=== PATIENT | female | born 1955 | race Caucasian/White ===

== ENCOUNTER 2021-05-10 00:32 | Day surgery (SDC) | payer MEDICARE, SELFPAY ==
[2021-04-27 17:15] VITALS: BMI 25.4
--- NOTE | 2021-05-09 09:05 | WPDANESEPPF ---
Anes - Initial Pre Proc Eval Procedure: Operation Date: 05/10/21 07:30 Proposed Procedures p Screening Colonoscopy - Lazaro Wagoner MD Date/Time: 05/09/21 09:05 Surgeon: Lazaro Wagoner MD Pre Op Diagnosis: hx of polyps Patient Data Age: 65 Gender: F Height: 1.69 m Weight: 72.5 kg Allergies Allergy/AdvReac Type Severity Reaction Status Date / Time No Known Allergies Allergy Verified 05/10/21 06:22 Home Medications Medication Instructions Recorded Confirmed Type anastrozole 1 mg PO DAILY 04/27/21 05/10/21 History calcium carbonate [Calcium 600] 600 mg PO DAILY 04/27/21 05/10/21 History cholecalciferol (vitamin D3) 25 mcg PO DAILY 04/27/21 05/10/21 History esomeprazole magnesium 20 mg PO DAILY PRN 04/27/21 05/10/21 History nmbrstnfbkxl-quxi-pptja acid 1 tablet PO DAILY 04/27/21 05/10/21 History [Centrum Women] omega 0-fav-qpr-fish oil [Fish Oil] 1 cap PO DAILY 04/27/21 05/10/21 History simvastatin 10 mg PO DAILY 04/27/21 05/10/21 History vitamin B complex 1 cap PO DAILY 04/27/21 05/10/21 History Patient hx anesthesia problems: none Family hx anesthesia problems: none [facility] Past Medical History Medical History (Updated 05/09/21 @ 09:06 by Roman Byrnes DO) GERD (gastroesophageal reflux disease) History of breast cancer Hyperlipidemia Surgical History Surgical History (Updated 05/09/21 @ 09:06 by Roman Byrnes DO) History of lumpectomy of right breast Social History Social History Smoking packs per day: 1 Smoking cigarettes per day: 20.0 Years smoked: 20 Smoking pack-years: 20.00 Smoking status: Former smoker Smoking end date: 10/14/89 Alcohol intake: current Drinks per week: 7 Living arrangements: with family Spiritual care concerns: No Anes - Eval Final PreProcedure Day of Procedure 05/09/21 09:05 Patient weight: overweight Heart: regular rate and rhythm Lungs: clear to auscultation and normal air movement Airway: Mallampati scale class II Neurological: alert and oriented Last oral intake: >/= 8 hours ASA classification: II Emergent: no Anesthetic plan: proceed Anesthesia type and monitoring: general GIVS and standard monitoring Informed Consent: The patient's anesthetic plan and its attendant risks and benefits were discussed with the patient/family/POA. Questions were solicited and answers provided to the satisfaction of the patient/family/POA.
[2021-05-10 06:25] VITALS: BP 115/89; PULSE 88; RESP 16; TEMP 36.3; O2SAT 99; BMI 24.9
[2021-05-10] MEDS: LACTATED RINGERS 1,000 ML 150 ML IV CONT (06:40)
--- NOTE | 2021-05-10 07:12 | PM.HPGS ---
History of Present Illness History of Present Illness Consent: Risks, benefits, and alternatives have been discussed and questions answered. Patient agrees to proceed with procedure. Chief complaint: hx of polyps Narrative: Mya Shi is a 65 year old female referred for colon cancer screening. Her last colonoscopy was 8 years ago Review of Systems Review of Systems: All systems reviewed & are unremarkable except as noted in HPI and below PMFSH Past Medical History Medical History GERD (gastroesophageal reflux disease) History of breast cancer Hyperlipidemia Surgical History Surgical History History of lumpectomy of right breast Social History Social History Smoking packs per day: 1 Smoking cigarettes per day: 20.0 Years smoked: 20 Smoking pack-years: 20.00 Smoking status: Former smoker Smoking end date: 10/14/89 Alcohol intake: current Drinks per week: 7 Living arrangements: with family Spiritual care concerns: No Meds Home Medications and Allergies Home Medications Medication Instructions Recorded Confirmed Type anastrozole 1 mg PO DAILY 04/27/21 05/10/21 History calcium carbonate [Calcium 600] 600 mg PO DAILY 04/27/21 05/10/21 History cholecalciferol (vitamin D3) 25 mcg PO DAILY 04/27/21 05/10/21 History esomeprazole magnesium 20 mg PO DAILY PRN 04/27/21 05/10/21 History enmmdozycfxb-qwjd-skgli acid 1 tablet PO DAILY 04/27/21 05/10/21 History [Centrum Women] omega 8-aea-yic-fish oil [Fish Oil] 1 cap PO DAILY 04/27/21 05/10/21 History simvastatin 10 mg PO DAILY 04/27/21 05/10/21 History vitamin B complex 1 cap PO DAILY 04/27/21 05/10/21 History Allergies Allergy/AdvReac Type Severity Reaction Status Date / Time No Known Allergies Allergy Verified 05/10/21 06:22 Exam Resp: Auscultation: clear to auscultation bilaterally Cardio: Rate: regular rate Rhythm: regular rhythm GI: GI Palp: Yes Soft to palpation and No Tenderness to palpation present (GI) Assessment and Plan Assessment and plan (1) Colon cancer screening: Code(s): Z12.11 - Encounter for screening for malignant neoplasm of colon Status: Acute Assessment and Plan: Colonoscopy with possible biopsy or polypectomy or cautery or injection of substances.
[2021-05-10 08:00] VITALS: BP 110/67; PULSE 76; RESP 14; O2SAT 99
[2021-05-10 08:10] VITALS: BP 127/84; PULSE 77; RESP 14; O2SAT 99
[2021-05-10 08:20] VITALS: BP 131/85; PULSE 77; RESP 23; O2SAT 97
== END 2021-05-10 08:36 | disposition home or self-care (01) ==
PROVIDERS: Visit Provider Internal Medicine Gastroenterology
PROC: 0DJD8ZZ Inspection of Lower Intestinal Tract, Via Natural or Artificial Opening Endoscopic (ICD-10-PCS; CPT 45378; principal; 2021-05-10 07:30)
DX: Z12.11 Encounter for screening for malignant neoplasm of colon (principal); K57.30 Diverticulosis of large intestine without perforation or abscess without bleeding; D12.4 Benign neoplasm of descending colon; D12.5 Benign neoplasm of sigmoid colon; E78.5 Hyperlipidemia, unspecified; K21.9 Gastro-esophageal reflux disease without esophagitis; Z85.3 Personal history of malignant neoplasm of breast; Z79.811 Long term (current) use of aromatase inhibitors; Z87.891 Personal history of nicotine dependence
CPT/HCPCS: 45385; 45381; 88305; J2001; J2704; J7120

== ENCOUNTER 2024-08-26 08:07 | Day surgery (SDC) | payer MEDICARE, SELFPAY ==
[2024-07-17 07:30] VITALS: BMI 25.8
[2024-08-07 11:19] VITALS: BMI 24.8
--- NOTE | 2024-08-26 06:43 | P.PNAN_ITS ---
Anes - Initial Pre Proc Eval Procedure: Operation Date: 08/26/24 10:00 Proposed Procedures p Diagnostic Colonoscopy - Travis Parish MD Date/Time: 08/26/24 06:43 Surgeon: Travis Parish MD Pre Op Diagnosis: Z86.0100 Personal hx of colonic polyps Patient Data Age: 68 Gender: F Height: 1.69 m Weight: 71 kg Allergies Allergy/AdvReac Type Severity Reaction Status Date / Time No Known Allergies Allergy Verified 08/26/24 08:35 Home Medications Medication Instructions Recorded Confirmed Type anastrozole 1 mg tablet 1 mg PO DAILY 04/27/21 08/26/24 History calcium carbonate (Calcium 600) 600 mg PO DAILY 04/27/21 08/26/24 History cholecalciferol (vitamin D3) 25 25 mcg PO DAILY 04/27/21 08/26/24 History mcg (1,000 unit) capsule esomeprazole magnesium 20 mg 20 mg PO DAILY PRN acid relux 04/27/21 08/26/24 History capsule,delayed release simvastatin 10 mg tablet 10 mg PO DAILY 04/27/21 08/26/24 History vitamin B complex 1 cap PO DAILY 04/27/21 08/26/24 History Patient hx anesthesia problems: none Family hx anesthesia problems: none Results Review: All pre-operative results and documents have been reviewed as part of the pre- operative evaluation. [facility] Past Medical History Medical History GERD (gastroesophageal reflux disease) History of breast cancer Hyperlipidemia Surgical History Surgical History History of lumpectomy of right breast Social History Social History (Updated 08/26/24 @ 08:47 by Roman Byrnes DO) Smoking packs per day: 1 Smoking cigarettes per day: 20.0 Years smoked: 20 Smoking pack-years: 20.00 Smoking status: Former smoker Tobacco type: cigarettes Smoking end date: 10/14/89 Alcohol intake: current Drinks per week: 7 Alcohol use details: 2 drinks/day Substance use: never Substance use type: does not use Living arrangements: with family Spiritual care concerns: No Anes - Eval Final PreProcedure Day of Procedure 08/26/24 06:43 Patient weight: overweight Heart: regular rate and rhythm Lungs: clear to auscultation Airway: Mallampati scale class II Neurological: alert and oriented Last oral intake: >/= 8 hours ASA classification: III Emergent: no Anesthetic plan: proceed Anesthesia type and monitoring: general GIVS and standard monitoring Results Review: All pre-operative results and documents have been reviewed as part of the pre- operative evaluation. Informed Consent: The patient's anesthetic plan and its attendant risks and benefits were discussed with the patient/family/POA. Questions were solicited and answers provided to the satisfaction of the patient/family/POA.
[2024-08-26 08:40] VITALS: BP 123/77; PULSE 76; RESP 18; TEMP 36.3; O2SAT 98; BMI 25.1
--- NOTE | 2024-08-26 08:46 | PM.HPGS ---
History of Present Illness History of Present Illness Consent: Risks, benefits, and alternatives have been discussed and questions answered. Patient agrees to proceed with procedure. Chief complaint: Z86.0100 Personal hx of colonic polyps Narrative: Mya Shi is a 68 year old female presents for screening colonoscopy. Patient has current weight appetite and bowel sounds are normal. Patient denies abdominal pain. Is no bleeding. Family history noncontributory. Colon polyps have been found on previous exams. Most recently 3 years ago. Review of Systems Review of Systems: All systems reviewed & are unremarkable except as noted in HPI and below PMFSH Past Medical History Medical History GERD (gastroesophageal reflux disease) History of breast cancer Hyperlipidemia Surgical History Surgical History History of lumpectomy of right breast Social History Social History Smoking packs per day: 1 Smoking cigarettes per day: 20.0 Years smoked: 20 Smoking pack-years: 20.00 Smoking status: Former smoker Tobacco type: cigarettes Smoking end date: 10/14/89 Alcohol intake: current Drinks per week: 7 Alcohol use details: 2 drinks/day Substance use: never Substance use type: does not use Living arrangements: with family Spiritual care concerns: No Meds Home Medications and Allergies Home Medications Medication Instructions Recorded Confirmed Type anastrozole 1 mg tablet 1 mg PO DAILY 04/27/21 08/26/24 History calcium carbonate (Calcium 600) 600 mg PO DAILY 04/27/21 08/26/24 History cholecalciferol (vitamin D3) 25 25 mcg PO DAILY 04/27/21 08/26/24 History mcg (1,000 unit) capsule esomeprazole magnesium 20 mg 20 mg PO DAILY PRN acid relux 04/27/21 08/26/24 History capsule,delayed release simvastatin 10 mg tablet 10 mg PO DAILY 04/27/21 08/26/24 History vitamin B complex 1 cap PO DAILY 04/27/21 08/26/24 History Allergies Allergy/AdvReac Type Severity Reaction Status Date / Time No Known Allergies Allergy Verified 08/26/24 08:35 Vital Signs Vital Signs - 24 hr 08/26/24 08:40 Temperature 97.3 F L Pulse Rate 76 Respiratory Rate 18 Blood Pressure 123/77 Pulse Oximetry 98 Oxygen Delivery Room Air Exam Narrative: Physical exam reveals patient signs stable. Exam is unremarkable. Patient is anicteric. Lungs are clear to auscultation and percussion. His without murmur or extra sounds. Abdomen bowel sounds are present soft nontender with no hepatosplenomegaly. Digital external rectal exam normal. Assessment and Plan Assessment and plan (1) Colon cancer screening: Code(s): Z12.11 - Encounter for screening for malignant neoplasm of colon Status: Acute (2) History of colon polyps: Code(s): Z86.0100 - Personal history of colon polyps, unspecified Status: Acute Assessment and Plan: Patient has a previous history of adenomatous colon polyp. Plan for surveillance colonoscopy now and at intervals in the future.
[2024-08-26] MEDS: AMPICILLIN 2 GM/NS 100 ML 2 GM/100 ML BAG IVPB (08:56)
[2024-08-26] MEDS: LACTATED RINGERS 1,000 ML 150 ML IV CONT (08:56)
[2024-08-26 09:37] VITALS: BP 120/86; PULSE 89; RESP 14; O2SAT 97
[2024-08-26 09:47] VITALS: BP 120/77; PULSE 84; RESP 16; O2SAT 100
[2024-08-26 09:57] VITALS: BP 116/81; PULSE 84; RESP 18; O2SAT 99
--- NOTE | 2024-08-26 12:32 | WPDANESPN ---
Anes - Prog Note Post-Op Date/Time: 08/26/24 12:32 Cardiovascular status: normal Respiratory status: normal Airway patency: baseline Mental status: baseline Post-Op hydration status: normal Vital Signs: Last Vital Signs Temp 36.3 C L 08/26/24 08:40 Pulse 84 08/26/24 09:57 Resp 18 08/26/24 09:57 BP 116/81 08/26/24 09:57 Pulse Ox 99 08/26/24 09:57 O2 Del Method Room Air 08/26/24 09:57 Pain Score (VAS): 0 I/O: Intake & Output 08/25/24 08/26/24 08/26/24 23:59 07:59 15:59 Intake Total 100 Balance 100 Post-procedural complaints: none Patient Feedback: Patient satisfied with anesthetic care. Other Findings: Patient vital signs back to baseline. Patient denies nausea and vomiting. Patient's pain under control. Patient OK for discharge.
== END 2024-08-26 10:10 | disposition home or self-care (01) ==
PROVIDERS: PCP Family Medicine; Visit Provider Internal Medicine Gastroenterology
PROC: 0DJD8ZZ Inspection of Lower Intestinal Tract, Via Natural or Artificial Opening Endoscopic (ICD-10-PCS; CPT 45378; principal; 2024-08-26 10:00)
DX: Z86.0100 Personal history of colon polyps, unspecified (principal); K57.30 Diverticulosis of large intestine without perforation or abscess without bleeding; K64.8 Other hemorrhoids
CPT/HCPCS: 45378

== ENCOUNTER → 2025-05-04 16:03 | Outpatient (REF) | payer MEDICARE, SELFPAY ==
--- NOTE | 2025-05-04 16:03 | S_PTH ---
PATIENT: Mya Shi LOC: ANAB #:[id number] AGE/SX: 70/F ROOM: RE05/04/[address]: Jayla Self MD : 1955 BED: DIS: SPEC #: [id number] RECD: 05/05/25 06:58 STATUS: CHRIS REQ #: [id number] ENZO: 05/04/25 16:[address]: Jyala Self DEPT: [facility] Surgical RECD BY: Blank Rivera ENTERED: 05/05/25 06:58 SP TYPE: Surgical OTHR DR: Vinicio GrewalMD Tissues: A - Skin Procedures: Hematoxylin and Eosin Stain Gross and Microscopic Level 4
--- OUTSIDE RECORDS SUMMARY | 2025-05-04 16:05 | XMS_ITS ---
Author Organization [facility] Address [address] [place] [address] Care Team Providers Care Box Nailer Name Role Phone Vinicio Grewal MD Primary Care Provider [phone] Jennie Betancourt CONTACT LENS POLISHER Unavailable [phone] Active Problems Problem Noted Date Diagnosed Date Hip osteoarthritis 05/04/2024 Osteopenia 01/05/2024 Gastroesophageal reflux disease without esophagi tis 05/21/2023 Prediabetes 05/21/2023 Primary osteoarthritis of left hip 05/21/2023 History of breast cancer 12/03/2022 Primary osteoarthritis of left knee 11/03/2021 Overview (11/03/2021): Added automatically from request for surgery [id number] Diverticulosis 06/28/2021 Malignant neoplasm of upper- outer quadrant of right breast in female, estrogen receptor positive 11/18/2020 Malignant neoplasm of lower- outer quadrant of right breast of female, estrogen receptor positive 11/16/2019 Cancer Staging:Clinical: cT1b - Unsigned Pathologic:Stage IA(pT1b, pN0(sn), cM0, G2, ER+, NH+, HER2-) - Unsigned Mixed hyperlipidemia 11/16/2019 Current Treatment and Therapy Plans No current plan information found. Past Treatment and Therapy Plans No past plan information found. Radiation Treatments * Course C1 R BREAST 2020 01/05/2020 - 01/25/2020 Treatment Period Energy Fraction Dose Fractions Total Dose Plans Planned R BREAST 01/05/2020 - 01/25/2020 267 15 / 4,005 Reference Points Delivered dpv luke 01/05/2020 - 01/25/2020,005 Lifetime Dose Tracking * Chemical Lifetime Dose Automatic Entry Manual Entr y Fluoro Time 0.25 minutes 0.25 minutes 0 minutes Air kerma at the reference point (Ka,r) 2.67 mGy 2 .67 mGy 0 mGy Resolved Problems Problem Noted Date Diagnosed Date Resolved Date Well woman exam 12/17/2023 01/16/2025 Assessment & Plan (01/16/2025 11:18 PM CDT): - Pap: Age > 65 with previous adequate screening, no further screening indicated - HPV vaccine: Not received, no longer eligible - STI screening: Declines - Contraception: Post-menopausal - Hormone Therapy: Declines vaginal estrogen - Mammogram: Last BI-RADS 2 on 12/2023, next due and scheduled for today - Colonoscopy: Last 2023, next due 2028 - DEXA: Last with osteopenia on 11/2023. FRAX with 10-year probability of major osteoporotic fracture 11%/hip fracture 1.7%. Based off this, recommend repeat in 5-10 years., and Reviewed consumption of 1200mg Calcium and 800 international units of Vitamin D - Reviewed AHA recommendation of 150 minutes of moderate-intensity activity per week - Counseled on consuming varied diet rich in whole grains and fruits/vegetables - Covid-19 and influenza vaccination recommendations reviewed, received fall 2023 vaccines - Remainder of medical problems to be managed by PCP Assessment & Plan (01/05/2024 1:38 PM CDT): -Pap: NILM, HR HPV negative 09/2019. Remote history of abnormal Pap greater than 25 years ago. No further screening indicated at this time. -HPV vaccine: Not received, no longer eligible -STI screening: Declines -Contraception: Declines -Mammogram: Completed today -Colonoscopy: Reports she is scheduled for this the next few months -Dexa: 11/2023 with evidence of osteopenia. Counseled on calcium/vitamin-D intake and weight-bearing exercises. Repeat scan no sooner than 2 years. -Reviewed AHA recommendation of 150 minutes of moderate-intensity activity per week -Counseled on consuming varied diet rich in whole grains and fruits/vegetables -Covid-19 and influenza vaccination recommendations reviewed, received fall 2022 vaccines Encounter for preventive health examination 06/14/2017 12/18/2024 Encounter for preventive health examination 06/14/2017 12/18/2024
--- OUTSIDE RECORDS SUMMARY | 2025-05-04 16:05 | XMS_ITS | Encounter Summary ---
Author Organization [facility] Address [facility] [place] [address] Care Team Providers Care Music Education Director Name Role Phone Pranay Uribe DO Primary Care Provider [phone] Mary Norton MD Primary Care Provider [phone] Roman Grewal MD Primary Care Provider [phone] Vinicio Grewal MD Primary Care Provider [phone] Encounter Details Date Type Department Care Team (Late st Contact Info) Description 06/30/2021 MyChart Message Enc [facility] Family Medicine - [place] [address] [place] [phone] Pranay Uribe DO [address] [place] [address] RE: Test Results Social History Tobacco Use Types Packs/Day Years Used Date Smoking Tobacco: Former Smokeless Tobacco: Never Comments:quit 30 years ago Alcohol Use Standard Drinks/Week Comments Yes 0 (1 standard drink = 0.6 oz pur e alcohol) PHQ-2 Answer Date Recorded PHQ-2 Score - If the patient scores above 3, please move on to questions 3-9 0 03/17/2021 Comments No Sex and Gender Information Value Date Recorded Sex Assigned at Not on file 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 Gender Identity Not on file Sexual Orientation Not on file documented as of this encounter Plan of Treatment Not on file documented as of this encounter Visit Diagnoses Not on filedocumented in this encounter Additional Health Concerns Assessment Noted Time PHQ-9 Depression Total Score: 0 03/17/20 21 8:23 AM CDT documented as of this encounter Care Teams Music Education Director Relationship Specialty Start Date End Date Pranay Uribe DO PCP - General FAMILY PRACTICE 11/16/19 10/02/22 Mary Norton MD [address] [place] [address] PCP - General FAMILY PRACTICE 11/08/22 12/02/22 Roman Grewal MD [address] [place] [address] PCP - General 12/03/22 12/03/22 Vinicio Grewal MD [address] [facility] [address] [place] [address] PCP - General FAMILY PRACTICE 12/04/22 documented as of this encounter
--- OUTSIDE RECORDS SUMMARY | 2025-05-04 16:05 | XMS_ITS | Encounter Summary ---
Author Organization [place] Address [facility] [place] [address] Care Team Providers Care Software Development Specialist Name Role Phone Pranay Uribe DO Primary Care Provider [phone] Mary Norton MD Primary Care Provider [phone] Roman Grewal MD Primary Care Provider [phone] Vinicio Grewal MD Primary Care Provider [phone] Encounter Details Date Type Department Care Team (Late st Contact Info) Description 05/25/2021 MyChart Message Enc [facility] Family Medicine - [place] [address], [address] [place] [phone] Pranay Uribe DO [address] [place] [address] RE: Test Results Social History Tobacco Use [...] on file 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 Gender Identity Not on file Sexual Orientation Not on file documented as of this encounter Plan of Treatment Not on file documented as of this encounter Visit Diagnoses Not on filedocumented in this encounter Additional Health Concerns Assessment Noted Time PHQ-9 Depression Total Score: 0 03/17/20 21 8:23 AM CDT documented as of this encounter Care Teams Software Development Specialist Relationship Specialty Start Date End Date Pranay Uribe DO PCP - General FAMILY PRACTICE 11/16/19 10/02/22 Mary Norton MD [address] [place] [address] PCP - General FAMILY PRACTICE 11/08/22 12/02/22 Roman Grewal MD [address] [place] [address] PCP - General 12/03/22 12/03/22 Vinicio Grewal MD [address] [facility] [address] [place] [address] PCP - General FAMILY PRACTICE 12/04/22 documented as of this encounter
--- OUTSIDE RECORDS SUMMARY | 2025-05-04 16:05 | XMS_ITS | Encounter Summary ---
Author Organization [facility] Address [address] [place] [address] Care Team Providers Care Division Plant Engineer Name Role Phone Vinicio Grewal MD Primary Care Provider [phone] Encounter Details Date Type Department Care Team (Late st Contact Info) Description 08/27/2023 MyCImproveit! 360t Message Enc [facility] Family Medicine - [place] [address] [place], [place] [phone] Vinicio Grewal MD [address] [facility] [address] [place], [place] [id number] Pre diabetic Social History Tobacco Use Types Packs/Day Years Used Date Smoking Tobacco: Former Cigarettes Q uit: 06/22/1990 Smokeless Tobacco: Never Comments:quit 30 years ago Alcohol Use Standard Drinks/Week Comments Yes 16.7 (1 standard drink = 0.6 oz pure alcohol) PHQ-2 Answer Date Recorded Patient Health Questionnaire-2 Score 0 12/04/2022 Comments No Sex and Gender Information Value Date Recorded Sex Assigned at Not on file Legal Sex Female 11:54 AM PRIVATE PILOT Gender Identity Not on file Sexual Orientation Not on file documented as of this encounter Plan of Treatment Not on file documented as of this encounter Visit Diagnoses Not on filedocumented in this encounter Additional Health Concerns Assessment Noted Time PHQ-9 Depression Total Score: 1 03/22/20 22 10:14 AM CDT documented as of this encounter Care Teams Division Plant Engineer Relationship Specialty Start Date End Date Vinicio Grewal MD [address] [facility] [address] [place] [address] PCP - General FAMILY PRACTICE 12/04/22 documented as of this encounter
--- OUTSIDE RECORDS SUMMARY | 2025-05-04 16:05 | XMS_ITS | Encounter Summary ---
Author Organization [facility] Address [facility] [place] [address] Care Team Providers Care Conditioner Tumbler Name Role Phone Vinicio Grewal MD Primary Care Provider [phone] Encounter Details Date Type Department Care Team (Late st Contact Info) Description 02/07/2023 MyCQirot Message Enc [facility] Family Medicine - [place] [address] , [address] [place] [address] Vinicio Grewal MD [address] [facility] [address] [place] [id number] Test results re HepC Social History Tobacco Use Types Packs/Day Years [...] on file 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
--- OUTSIDE RECORDS SUMMARY | 2025-05-04 16:05 | XMS_ITS | Encounter Summary ---
Author Organization [facility] Address [address] [place] [address] Care Team Providers Care Network Security Analyst Name Role Phone Vinicio Grewal MD Primary Care Provider [phone] Encounter Details Date Type Department Care Team (Late st Contact Info) Description 02/21/2024 MyCJasonDBt Message Enc [facility] Family Medicine - [place] [address] , [address] [place] [phone] Vinicio Grewal MD [address] [facility] [address] [place] [id number] MRI Right Ankle Social History Tobacco Use Types Packs/Day Years [...] on file Legal Sex 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
--- OUTSIDE RECORDS SUMMARY | 2025-05-04 16:05 | XMS_ITS | Clinical Summary ---
Author Organization [facility] Address [address] [place] [address] Care Team Providers Care Labor Conciliator Name Role Phone Vinicio Grewal MD Primary Care Provider [phone] Allergies No known active allergies Medications omeprazole 40 MG capsule Take 1 capsule (40 mg total) by mouth daily as needed. Active anastrozole 1 MG tablet Take 1 tablet by mouth daily. Active tirzepatide (ZEPBOUND) 5 MG/0.5ML injectionIndication s:Weight Loss Inject 5 mg into the skin once a week. Indications: Weight Loss 4 Active simvastatin (ZOCOR) 10 MG tabletIndications:M ixed hyperlipidemia TAKE 1 TABLET BY MOUTH EVERY NIGHT AT BEDTIME 90 tablet 5 Active Active Problems Problem Noted Date Diagnosed Date Primary osteoarthritis of left hip 05/21/2023 Gastroesophageal reflux disease without esophagi tis 05/21/2023 Prediabetes 05/21/2023 History of breast cancer 12/03/2022 Primary osteoarthritis of left knee 11/03/2021 Overview (03/22/2022): Added automatically from request for surgery [id number] Mixed hyperlipidemia 11/16/2019 Diverticulosis Resolved Problems Problem Noted Date Diagnosed Date Resolved Date Malignant neoplasm of lower- outer quadrant of right breast of female, estrogen receptor positive ([facility]/HCC HHS/HCC) 11/16/2019 12/04/2022 Encounter for preventive health examination 06/14/2017 01/02/2021 Immunizations Immunization Administration Dates Next Due Fluzone (IIV3, Trivalent, 0. 5 ML Prefilled Syringe) 08/19/2024 Fluzone 6 Months+ Quad (0.5 mL Prefilled Syringe) 08/27/2023,11/16/2019 Fluzone High Dose - >Age 65 (Prefilled Syringe) 06/14/2020 Influenza (Generic) 08/16/2021,06/14/2020 Influenza Adult (Generic) 07/19/2022,08/16/2021, 06/14/2020 MODERNA COVID-19 (12+) MRNA, LNP-S, PF, 100 MCG/ 0.5 ML DOSE 12/08/2020,2020 MODERNA COVID-19 (WEBBING WEAVER NOELLE JOSIAH), MRNA, LNP-S, PF, 50 MCG/ 0.25 ML DOSE 09/19/2021 PFIZER COVID-19 (12+) MRNA, LNP-S, PF, TIBURCIO-SUCROSE, 30 MCG/0.3 ML (COMIRNATY) 08/19/2024,08/27/2023 PFIZER COVID-19 BIVALENT (12 +) mRNA, LNP-S, PF, 30 MCG/0.3 ML DOSE 07/31/2022 Pneumococcal (Generic) 08/18/2019 Pneumococcal (Pneumovax 23) 08/18/2019 Pneumococcal (Prevnar 13) 07/31/2017 Shingrix 05/25/2021,02/28/2021 Tdap (Adacel) 03/17/2021 Family History Medical History Relation Comments Diabetes Father Stroke Father Heart Disease Mother Cancer Paternal Aunt Cancer Sister 1 Cancer Sister 2 Bone cancer Relation Status Comments Father Mother Paternal Aunt Sister 1 Alive Sister 2 Social History Tobacco Use Types Packs/Day Years Used Date Smoking Tobacco: Former Cigarettes Q uit: 06/22/1990 Smokeless Tobacco: Never Tobacco Cessation:Counseling Given: No Comments:quit 30 years ago Alcohol Use Standard Drinks/Week Comments Yes 16.7 (1 standard drink = 0.6 oz pure alcohol) PHQ-2 Answer Date Recorded Patient Health Questionnaire-2 Score 0 04/14/2024 Comments No Sex and Gender Information Value Date Recorded Sex Assigned at Not on file Legal Sex Female 11:54 AM GOLF COURSE MECHANIC Gender Identity Not on file Sexual Orientation Not on file Last Filed Vital Signs Vital Sign Reading Time Taken Comments Blood Pressure 114/76 04/14/2024 1:25 PM CDT Pulse 74 04/14/2024 1:25 PM CDT Temperature 36.4 C (97.5 F) 04/14/2024 1:25 PM CDT Respiratory Rate 18 04/14/2024 1:25 PM CDT Oxygen Saturation 98% 04/14/2024 1:25 PM CDT Inhaled Oxygen Concentration - - Weight 72.2 kg (159 lb 3.2 oz) 04/14/2024 1:25 P M CDT Height 167.6 cm (5' 6) 03/22/2022 9:34 AM CDT Body Mass Index 25.7 03/22/2022 9:34 AM CDT Plan of Treatment Health Maintenance Due Date Last Done Comments Annual Medicare Wellness Visit 2019 Pneumococcal Vaccine: 50+ Years (3 of 3 - PCV20 or PCV21) 08/18/2024 08/18/2019, 07/31/2017 PHQ-2 (Physician Hanahan) 10/14/2024 04/14/2024 COVID-19 Vaccine ( season) 2025 08/19/2024, 08/27/2023, 07/31/2022, Additional history exists Mammogram Screening 12/18/2026 12/18/2024, 12/18/2024, 12/17/2023, Additional history exists RSV Immunization or 60+ Years (1 - 1-dose 75+ series) 2029 DTaP, Tdap and Td Vaccines (2 - Td or Tdap) 03/17/2031 03/17/2021 Colorectal Cancer Screening Colonoscopy (10 Years) 08/26/2034 08/26/2024, 05/10/2021, 05/10/2021, Additional history exists Zoster Vaccines Completed 05/25/2021, 02/28/2021 Hepatitis C Completed 06/29/2022 Dexa Scan (General) Completed 11/19/2023, 11/17/2020, 11/17/2020, Additional history exists Meningococcal B Vaccine Aged Out No l onger eligible based on patient's age to complete this topic Meningococcal Vaccine Aged Out No deon heather eligible based on patient's age to complete this topic RSV Immunizations Under 20 Months Aged Out No longer eligible based on patient's age to complete this topic Procedures Procedure Name Priority Date/Time Associated Diagnosis Comments MAMMOGRAM GENERIC (SCAN ORDER) 12/18/2024 COLONOSCOPY GENERIC (SCAN ORDER) 08/26/2024 BONE DENSITY/DEXA Routine 11/19/2023 9:1 3 AM GOLF COURSE MECHANIC Asymptomatic postmenopausal state HEP C SCANNED ORDERS Routine 06/29/2022 from Last 3 Months or Most Recently Relevant to Health Maintenance Results * MAMMOGRAM GENERIC (SCAN ORDER) (12/18/2024) Anatomical Region Laterality Modality Other 12/18/2024 [facility] Scanned SCANNING Final Resu lt * COLONOSCOPY GENERIC (SCAN ORDER) (08/26/2024) 08/26/2024 [facility] Scanned SCANNING Final Resu lt * BONE DENSITY/DEXA (11/19/2023 9:13 AM GOLF COURSE MECHANIC) Anatomical Region Laterality Modality Bone Mammography 11/19/2023 3:28 PM GOLF COURSE MECHANIC Impressions 11/19/2023 3:30 PM GOLF COURSE MECHANIC =====IMPRESSION:===== The patient bone density osteopenic according to the World Health Organization (WHO) criteria 10 year fracture risk: Major osteoporotic fracture: 11 % Hip fracture: 1.7 % Ordered By: VINICIO GREWAL Interpreted By: Rajesh Peters MD, 11/19/2023 3:28 PM Narrative 11/19/2023 3:30 PM GOLF COURSE MECHANIC EXAMINATION: Bone Density Axial EXAM DATE/TIME: 11/19/2023 8:53 AM REASON FOR EXAM: post menopausal status COMPARISON: None FINDINGS: DEXA bone densitometry The bone mineral density (BMD) was determined by dual-energy x-ray absorptiometry, the results are as follows: AP Lumbar Spine L1 through L4 BMD Patient (GM/SQCM): 0.899 T-Score (Standard deviations from young adult peak bone density): -1.3 and a Z- Score of 0.7. . It should be noted that scoliosis and osteoarthritis may falsely increase bone mineral density measured in the lumbar spine. Left femoral neck: BMD Patient (GM/SQCM): 0.7 T-Score (Standard deviations from young adult peak bone density): -1.3 and a Z- Score of 0.4. Left Total femur: BMD Patient (GM/SQCM): 0.820 T-Score (Standard deviations from young adult peak bone density): -1.0 and a Z- Score of 0.4. Procedure Note Rajesh Peters MD - 11/19/2023 EXAMINATION: Bone Density Axial EXAM DATE/TIME: 11/19/2023 8:53 AM REASON FOR EXAM: post menopausal status COMPARISON: None FINDINGS: DEXA bone densitometry The bone mineral density (BMD) was determined bydual-energy x-ray absorptiometry, the results are as follows: AP Lumbar Spine L1 through L4 BMD Patient (GM/SQCM): 0.899 T-Score (Standard deviations from young adult peak bonedensity): -1.3 and a Z- Score of 0.7. . It should be noted thatscoliosis and osteoarthritis may falsely increase bone mineral densitymeasured in the lumbar spine. Left femoral neck: BMD Patient (GM/SQCM): 0.7 T-Score (Standard deviations from young adult peak bonedensity): -1.3 and a Z- Score of 0.4. Left Total femur: BMD Patient (GM/SQCM): 0.820 T-Score (Standard deviations from young adult peak bonedensity): -1.0 and a Z- Score of 0.4. =====IMPRESSION:===== The patient bone density osteopenic according to the World Health Organization (WHO) criteria 10 year fracture risk: Major osteoporotic fracture: 11 % Hip fracture: 1.7 % Ordered By: VINICIO GREWAL Interpreted By: Rajesh Peters MD, 11/19/2023 3:28 PM us Vinicio Grewal MD DEXA Final Result * HEP C SCANNED ORDERS (06/29/2022) [facility] Scanned SCANNING Final Resu lt HS ONBASE from Last 3 Months or Most Recently Relevant to Health Maintenance Insurance [facility] Care Teams Labor Conciliator Relationship Specialty Start Date End Date Vinicio Grewal MD [address] [address] PCP - General FAMILY PRACTICE 12/04/22
--- OUTSIDE RECORDS SUMMARY | 2025-05-04 16:05 | XMS_ITS | Encounter Summary ---
Author Organization [facility] Address [facility] [place] [address] Care Team Providers Care Scrap Dealer Name Role Phone Pranay Uribe DO Primary Care Provider [phone] Mary Norton MD Primary Care Provider [phone] Roman Grewal MD Primary Care Provider [phone] Vinicio Grewal MD Primary Care Provider [phone] Encounter Details Date Type Department Care Team (Late st Contact Info) Description 09/12/2022 MyChart Message Enc [facility] Family Medicine - [place] [address] [place] [phone] Pranay Uribe DO [address] [place], [place] [id number] Non medical question Social History Tobacco Use Types Packs/Day Years Used Date Smoking Tobacco: Former Cigarettes Q uit: 06/22/1990 Smokeless Tobacco: Never Comments:quit 30 years ago Alcohol Use Standard Drinks/Week Comments Yes 16.7 (1 standard drink = 0.6 oz pure alcohol) PHQ-2 Answer Date Recorded PHQ-2 Score - If the patient scores above 3, please move on to questions 3-9 0 03/22/2022 Comments No Sex and Gender Information Value Date Recorded Sex Assigned at Not on file Legal Sex Female 11:54 AM CASH APPLICATIONS ASSOCIATE Gender Identity Not on file Sexual Orientation Not on file documented as of this encounter Plan of Treatment Not on file documented as of this encounter Visit Diagnoses Not on filedocumented in this encounter Additional Health Concerns Assessment Noted Time PHQ-9 Depression Total Score: 1 03/22/20 22 10:14 AM CDT documented as of this encounter Care Teams Scrap Dealer Relationship Specialty Start Date End Date Pranay Uribe DO PCP - General FAMILY PRACTICE 11/16/19 10/02/22 Mary Norton MD [address] [place] [address] PCP - General FAMILY PRACTICE 11/08/22 12/02/22 Roman Grewal MD [address] [place] [address] PCP - General 12/03/22 12/03/22 Vinicio Grewal MD [address] [facility] [address] [place] [address] PCP - General FAMILY PRACTICE 12/04/22 documented as of this encounter
--- OUTSIDE RECORDS SUMMARY | 2025-05-04 16:05 | XMS_ITS | Encounter Summary ---
Author Organization [facility] Address [address] [place] [address] Care Team Providers Care Customer Advocate Name Role Phone Vinicio Grewal MD Primary Care Provider [phone] Encounter Details Date Type Department Care Team (Late st Contact Info) Description 04/28/2024 RageTank Message Enc [facility] Family Medicine - [place] [address] , [address] [place] [address] [facility] Provider physical therapy Social History Tobacco Use Types Packs/Day Years [...] on file Legal Sex Female 11:54 AM STAFF TRAINER Gender Identity Not on file Sexual Orientation Not on file documented as of this encounter Plan of Treatment Not on file documented as of this encounter Visit Diagnoses Not on filedocumented in this encounter Additional Health Concerns Assessment Noted Time PHQ-9 Depression Total Score: 1 03/22/20 22 10:14 AM CDT documented as of this encounter Care Teams Customer Advocate Relationship Specialty Start Date End Date Vinicio Grewal MD [address] [place] [address] PCP - General FAMILY PRACTICE 12/04/22 documented as of this encounter
--- OUTSIDE RECORDS SUMMARY | 2025-05-04 16:05 | XMS_ITS | Encounter Summary ---
Author Organization [facility] Address [address] [place] [address] Care Team Providers Care Wireless Consultant Name Role Phone Vinicio Grewal MD Primary Care Provider [phone] Encounter Details Date Type Department Care Team (Late st Contact Info) Description 12/25/2022 MyChart Message Enc [facility] Family Medicine - [place] [address] [facility] [place], [place] [phone] Vinicio Grewal MD [address] [facility] [address] [place], [place] [phone] Covid positive Social History Tobacco Use Types Packs/Day Years [...] on file Legal Sex Female 11:54 AM DEXTRINE MIXER Gender Identity Not on file Sexual Orientation Not on file COVID-19 Exposure Response Date Recorded In the last 10 days, have yo u been in contact with someone who was confirmed or suspected to have Coronavirus/COVID-19? No / Unsure 12/04/2022 10:05 AM DEXTRINE MIXER documented as of this encounter Plan of Treatment Not on file documented as of this encounter Visit Diagnoses Not on filedocumented in this encounter Additional Health Concerns Assessment Noted Time PHQ-9 Depression Total Score: 1 03/22/20 22 10:14 AM CDT documented as of this encounter Care Teams Wireless Consultant Relationship Specialty Start Date End Date Vinicio Grewal MD [address] [facility] [address] [place] [address] PCP - General FAMILY PRACTICE 12/04/22 documented as of this encounter
--- OUTSIDE RECORDS SUMMARY | 2025-05-04 16:05 | XMS_ITS | Clinical Summary ---
Author Organization [facility] Address [address] [place] [address] Care Team Providers Care Spike Machine Heater Name Role Phone Vinicio Grewal MD Primary Care Provider [phone] Jennie Betancourt AEROPHYSICIST Unavailable [phone] Allergies No known active allergies Medications simvastatin (ZOCOR) 10 mg tabletIndicatio ns:hyperlipidem ia Take 1 tablet (10 mg total) by mouth nightly Active omeprazole (PriLOSEC) 40 mg capsuleIndicati ons:reflux Take 1 capsule (40 mg total) by mouth as needed (reflux) Active calcium carbonate-vitam in D3 500mg (1,250mg) -600 unit tabletIndicatio ns:Hypocalcemia Prevention,Prev ention of Vitamin D Deficiency Take 1 tablet by mouth every morning Active amoxicillin 500 mg tablet/capsuleI ndications:Prop hylaxis, Medical TAKE 4 PILLS 1 HOUR BEFORE DENTAL APPOINTMENT. 12 tablet/capsu le 5 Active Additional Information Patient not taking.Reported on 12/18/2024 meloxicam (MOBIC) 7.5 mg tabletIndicatio ns:Osteoarthrit is Take 1 tablet (7.5 mg total) by mouth daily 40 tablet 2 5 Active Active Problems Problem Noted Date Diagnosed Date Hip osteoarthritis 05/04/2024 Osteopenia 01/05/2024 Gastroesophageal reflux disease without esophagi tis 05/21/2023 Prediabetes 05/21/2023 Primary osteoarthritis of left hip 05/21/2023 History of breast cancer 12/03/2022 Primary osteoarthritis of left knee 11/03/2021 Overview (11/03/2021): Added automatically from request for surgery [id number] Diverticulosis 06/28/2021 Malignant neoplasm of upper- outer quadrant of right breast in female, estrogen receptor positive 11/18/2020 Malignant neoplasm of lower- outer quadrant of right breast of female, estrogen receptor positive 11/16/2019 Cancer Staging:Clinical: cT1b - Unsigned Pathologic:Stage IA(pT1b, pN0(sn), cM0, G2, ER+, AK+, HER2-) - Unsigned Mixed hyperlipidemia 11/16/2019 Resolved Problems Problem Noted Date Diagnosed Date [...] Encounter for preventive health examination 06/14/2017 12/18/2024 Immunizations Immunization Administration Dates Next Due COVID-19 mRNA ([employer]) 0.3 m L (30 mcg) vaccine (12 years and up) 08/19/2024,08/27/2023 Influenza, Quadrivalent, Hig h Dose, Preservative Free, Intrr 06/14/2020 Influenza, Quadrivalent, Spl it, Preservative Free, Intramuscular 08/27/2023,11/16/2019 Influenza, Trivalent, Preservative Free, Intramu scular 08/19/2024 Influenza, Unspecified 07/19/2022,08/16/2021 Moderna SARS-CoV-2 Monovalent Vaccination (12+ Y RS) 12/08/2020,2020 Pneumococcal Conjugate PCV 13 07/31/2017 Pneumococcal Polysaccharide PPV23 08/18/2019 Pneumococcal, Unspecified 08/18/2019 Tdap 03/17/2021 ZOSTER Recombinant 05/25/2021,02/28/2021 Surgical History Surgery Date Site/Laterality Comments [place] DELIVERY ONLY Section - (Added by TW Conv) BREAST BIOPSY 10/05/2019 Right ABDOMINOPLASTY SECTION MASTECTOMY Right Partial COLONOSCOPY TOTAL HIP ARTHROPLASTY 04/13/2024 - 05/13/2024 Left Medical History Medical History Date Comments HLD (hyperlipidemia) GERD (gastroesophageal reflux disease) Breast cancer (HCC) PONV (postoperative nausea and vomiting) Family History Medical History Relation Name Comments AIDS Brother 1 Mohamud Diabetes type II Father Family hist ory of type 2 diabetes mellitus - (Added by TW Conv) Stroke Father Breast cancer Father's Sister age unknown Heart failure Mother Breast cancer Sister 1 Rema 65 Lung cancer Sister 3 Amrita Anesthesia problems Neg Hx Bleeding Disorder Neg Hx Clotting disorder Neg Hx Colon cancer Neg Hx Ovarian cancer Neg Hx Pancreatic cancer Neg Hx Uterine cancer Neg Hx Relation Name Status Comments Brother 1 Mohamud Brother 2 Chencho Alive Brother 3 Bridger Father Father's Sister Maternal Grandfather Maternal Grandmother Mother Paternal Grandfather Paternal Grandmother Sister 1 Rema Alive Sister 2 Suri Alive Sister 3 Amrita Alive Social History Tobacco Use Types Packs/Day Years Used Date Smoking Tobacco: Former Cigarettes 1 27 1 972 - 1998 Smokeless Tobacco: Never Tobacco Cessation:Counseling Given: Not Answered Alcohol Use Standard Drinks/Week Comments Yes 7 (1 standard drink = 0.6 oz pur e alcohol) AUDIT-C Answer Date Recorded Q1: How often do you have a drink containing alc ohol? 2-3 times a week 12/18/2024 Q2: How many drinks containi ng alcohol do you have on a typical day when you are drinking? 1 or 2 12/18/2024 Q3: How often do you have si x or more drinks on one occasion? Never 12/18/2024 Exercise Vital Sign Answer Date Recorde d On average, how many days pe r week do you engage in moderate to strenuous exercise (like a brisk walk)? 5 days 12/18/2024 On average, how many minutes do you engage in exercise at this level? 30 min 12/18/2024 Personal Safety Answer Date Recorded Have you ever been in or are you currently in a harmful physical or emotional relationship or is someone making you feel afraid or unsafe? Denies 05/04/2024 Comments No Sex and Gender Information Value Date Recorded Sex Assigned at Not on file Legal Sex Female 2:57 AM SALES OPERATIONS MANAGER Gender Identity Female 12/04/2019 12:48 PM SALES OPERATIONS MANAGER Sexual Orientation Not on file Occupation Industry Job Start Date Job End Date Retired Not on file Not on file Not on file Obstetrics History Para Term AB IAB SAB Ectopic Multiple Livin g Live Births 3 3 3 3 3 Date Outcome GA Total Labor Labor/2nd/3rd Weight Sex Type Anes PTL Aysha A1 A5 Name Clin 1978 Term M Vag-Sp ont Livin g Complications:None 1980 Term F Vag-Sp ont Livin g Complications:None 1982 Term M C-S j incis Livin g Complications:Breech present ation,Cord prolapse,Prolapse of umbilical cord Last Filed Vital Signs Vital Sign Reading Time Taken Comments Blood Pressure 138/82 12/18/2024 7:55 AM SALES OPERATIONS MANAGER Pulse 91 12/18/2024 7:55 AM SALES OPERATIONS MANAGER Temperature 36.7 C (98 F) 12/18/2024 7:55 AM SALES OPERATIONS MANAGER Respiratory Rate 18 12/18/2024 7:55 AM SALES OPERATIONS MANAGER Oxygen Saturation 98% 12/18/2024 7:55 AM SALES OPERATIONS MANAGER Inhaled Oxygen Concentration - - Weight 72.6 kg (160 lb) 12/31/2024 10:29 AM CDT Height 167.6 cm (5' 6) 12/31/2024 10:29 AM CDT Body Mass Index 25.82 12/31/2024 10:29 AM CDT Plan of Treatment Health Maintenance Due Date Last Done Comments Colon Cancer Screening-Colonoscopy 1955 Depression Screening 1955 Hepatitis B Screening 1972 Pneumococcal vaccine 65+ (3 of 3 - PCV20 or PCV21) 08/18/2024 08/18/2019, 08/18/2019, 07/31/2017 Well Visit 65+ 12/16/2024 12/17/2023, 11/14, 11/23/2021, Additional history exists Covid-19 Vaccine (2023-2 5 season) 2025 08/19/2024, 08/27/2023, 09/19/2021, Additional history exists Fall Risk Assessment 05/06/2025 05/06/2024 Osteoporosis Screening-Bone Density Scan 11/19/2025 11/19/2023, 11/17/2020 Breast Cancer Screening-Mammogram 12/18/2025 12/18/2024, 12/17/2023, 11/27/2022, Additional history exists DTaP/Tdap/Td Vaccine (2 - Td or Tdap) 03/17/2031 03/17/2021 Zoster Vaccine Completed 05/25/2021, 02/28/2021 Hepatitis C Screening Completed 06/29/2022 Influenza Vaccine Completed 08/19/2024, , 07/19/2022, Additional history exists Medical Devices Implanted Type Area Integrative Medicine Physician Device Identifier Shelf Expiration Date Model / Serial / Lot [employer] Shell Acetabular Trident Ii Tritanium D Od50mm Hip 3 Screw Hole Cluster Sterile 702-04-50d - [id number] Implanted:Qty: 1 on 05/04/2024 by Michele Mccormick MD at [facility] Other - see comments [employer] [id number] 02/16/2029 702-04-50 D / / [id number] [employer] Insert Trident 0deg 36mm 723-00-36d - [id number] Implanted:Qty: 1 on 05/04/2024 by Michele Mccormick MD at [facility] Other - see comments [employer] [id number] 02/10/2029 723-00-36 D / / [id number] [employer] Stem Femoral Hip Collared [employer] [id number] High Offset Size 3 [id number] - [id number] Implanted:Qty: 1 on 05/04/2024 by Michele Mccormick MD at [facility] Other - see comments [employer] [id number] 02/24/2029 4869-1457 / / [id number] [employer] V40 36mm Anatomic Hip -2.5mm Offset Taper Head Femoral [employer] 6570-0-436 - [id number] Implanted:Qty: 1 on 05/04/2024 by Michele Mccormick MD at [facility] Other - see comments [employer] [id number] 01/01/2029 6570-0-43 [id number] Procedures Procedure Name Priority Date/Time Associated Diagnosis Comments SCREENING MAMMOGRAM BILATERAL W SHAWN Schedule Routine, Read Routine (OP Routine) 12/18/2024 1:57 PM SALES OPERATIONS MANAGER History of breast cancer HEPATITIS C ANTIBODY Routine 06/29/2022 8:33 AM CDT DEXA AXIAL SKELETON BONE DENSITY 1 OR MORE SITES Schedule Routine, Read Routine (OP Routine) 11/17/2020 9:17 AM SALES OPERATIONS MANAGER Asymptomatic menopausal state Well woman exam from Last 3 Months or Most Recently Relevant to Health Maintenance Results * Screening Mammogram Bilateral W Shawn (12/18/2024 1:57 PM SALES OPERATIONS MANAGER) Anatomical Region Laterality Modality Breast Bilateral Mammography Narrative 12/19/2024 1:54 PM SALES OPERATIONS MANAGER Mammogram Technique: Bilateral Digital Breast Tomosynthesis, Bilateral C-view 2D Screening mammogram. Views obtained: bilateral craniocaudal and bilateral mediolateral oblique. Computer Aided Detection was performed. Mammogram Findings: The present examination has been compared to prior imaging studies performed at [facility] on 11/23/2021, 11/27/2022 and 12/17/2023. There are scattered areas of fibroglandular density. There are post breast conservation therapy changes in the right breast. There are no significant changes from the prior study. There is no suspicious abnormality in either breast. Impression: There is no mammographic evidence of malignancy. Annual screening mammography is recommended. OVERALL FINAL ASSESSMENT: BI-RADS CATEGORY 2: Benign. Procedure Note Camelia Padron MD - 12/19/2024 Mammogram Technique: Bilateral Digital Breast Tomosynthesis, Bilateral C-view 2D Screening mammogram. Views obtained: bilateral craniocaudal and bilateral mediolateral oblique. Computer Aided Detection was performed. Mammogram Findings: The present examination has been compared to prior imaging studies performed at [facility] on 11/23/2021, 11/27/2022 and 12/17/2023. There are scattered areas of fibroglandular density. There are post breast conservation therapy changes in the right breast. There are no significant changes from the prior study. There is no suspicious abnormality in either breast. Impression: There is no mammographic evidence of malignancy. Annual screening mammography is recommended. OVERALL FINAL ASSESSMENT: BI-RADS CATEGORY 2: Benign. Kesha Levy NP IMG MAMMO PROCEDURES Final Result * Hepatitis C antibody (06/29/2022 8:33 AM CDT) Hep C Ab Nonreactive Nonreactive SHANNAN DEMPSEY Comment: Interpretive Data Nonreactive: Antibodies to HCV not detected. Does NOT exclude the possibility of recent exposure to HCV. Equivocal: Equivocal for HCV antibodies. Supplemental molecular testing will be automatically performed to determine infection status in accordance with current CDC screening recommendations. Reactive: Positive for HCV antibodies. This may represent current or past HCV infection. Supplemental molecular testing will be automatically performed to determine current infection status in accordance with current CDC screening recommendations. Interpretive data was last revised on 2019. Blood 06/29/2022 8:33 AM CDT 06/29/2022 12:51 PM CDT Pranay Uribe DO LAB MICROBIOLOGY - GENERA L ORDERABLES Final Result SHANNAN [address] [facility] Department [place] [address] * Dexa Axial Skeleton Bone Density 1 or 2 Site (11/17/2020 9:17 AM SALES OPERATIONS MANAGER) Anatomical Region Laterality Modality Body N/A Radiographic Chey ging Narrative 11/17/2020 1:10 PM SALES OPERATIONS MANAGER Patient Name: Mya Shi Date of : 1955 Date of scan: 11/17/2020 Bone mineral density was performed on a [employer] Discovery Densitometer. Machine Cross-calibration and Precision studies have been performed with a least significant change of 0.024 g/cm at the spine, 0.020 g/cm at the total proximal femur, and 0.014g/cm at the forearm. HISTORY: This is a 65 y.o. postmenopausal female with a history of breast cancer and low bone mass. Currently on treatment with Aromatase inhibitor, calcium, and vitamin D. Previously treated with hormone replacement therapy. History of tobacco use: Social History Tobacco Use Smoking Status Former Smoker Packs/day: 1.00 Types: Cigarettes Start date: 1971 Quit date: 1991 Years since quittin.1 INDICATIONS: Menopause status, treatment monitoring and history of low bone mass. FINDINGS: BONE MINERAL DENSITY OF THE LUMBAR SPINE Bone Mineral Density (BMD) of the lumbar spine was measured from L1-L4 and the average density was calculated to be 0.880 gm/cm. This corresponds to a T-score standard deviations from the mean of young adults of -1.5. There is no previous study available for comparison. BONE MINERAL DENSITY OF THE PROXIMAL FEMUR Bone Mineral Density (BMD) of the left hip total was found to be 0.861 gm/cm2. This corresponds to a T-score standard deviations from the mean of young adults of -0.7. Femoral neck is 0.717 gm/cm2 with a T-score of -1.2. There is no previous study available for comparison. SUMMARY: Bone mineral density shows evidence of low bone mass in the hip and spine and moderately increased fracture risk. ADDITIONAL COMMENTS: If the patient has a history of a fragility fracture, a fracture that occurred with trauma equivalent to a fall from a standing position or less, then the diagnosis is osteoporosis. The risk of osteoporotic fracture increases approximately 2-fold for each 1.0 SD decrease in T-score. However, low bone density is not the only risk factor for fracture. Other factors include patient s age, previous osteoporotic fracture or prior fracture as an adult, loss of height of greater than 2 inches, corticosteroid use, risk of falling, risk of injury, and family history of osteoporosis. Not everyone with low bone mineral density has osteoporosis. Osteomalacia and other metabolic bone disorders should also be considered where indicated. Patients who have osteoporosis should be evaluated for specific diseases and conditions (secondary causes) that may cause or contribute to bone loss. Consider repeating this study in 1-2 years to assess the patient s response to treatment, if applicable. It is recommended that any follow up exam be performed on the same machine if possible for better accuracy. DEFINITIONS: Osteoporosis: BMD at or below -2.5 T-score Osteopenia (low bone mass): BMD between -1.0 and-2.5 T-score. The Bone Health Program adopts the following WHO definitions: Osteoporosis: BMD below -2.5 S.D. as compared to the BMD of young normal adults. Osteopenia or Low Bone Mass: BMD between -1.0 and -2.5 S.D. below the BMD of young normal adults. Normal Bone Density: BMD equal to or greater than -1.0 S.D. as compared to the BMD of young normal adults. References: 1) Jose, Annals of Internal Medicine 114(11): 919-923 (1990) 2) Leatha, Lancet 341 : 72-75 (1992) 3) Anderson, Journal Bone and Mineral Research 7(6): 633-8 (1991) 4) Rajesh, Journal Bone and Mineral Research 8(10):1227-33 (1992) The history and data sections of the bone mineral density scan were prepared by Gisela Deluca who is accredited by the International Society of Clinical Densitometry. The overall patient assessment and scan interpretation were performed by William Carrera M.D. who is certified by the International Society of Clinical Densitometry. [id number] Shawna Hurley MD IM DXA PROCEDURES Final Resu lt from Last 3 Months or Most Recently Relevant to Health Maintenance Insurance [id number] [facility] [place] [id number] [facility] MEDICARE ADVANTAGE [facility] MEDICARE ADVANTAGE Advance Directives For more information, please contact: [phone] * Full Code (Latest Code Status on File) Date Activated Date Inactivated Comments 05/04/2024 12:15 PM 05/06/2024 4:31 PM Care Teams Spike Machine Heater Relationship Specialty Start Date End Date Vinicio Grewal MD [address] [facility] [address] [place], [place] [id number] PCP - General Family Practice 01/04/23 [place] [address] [place] [address] [address] [facility] [address] [place], [place] [id number] Nurse Practitioner Medical Oncology 12/17/23
--- OUTSIDE RECORDS SUMMARY | 2025-05-04 16:05 | XMS_ITS | Referral Summary ---
Author Organization [facility] Address [address] [place] [address] Care Team Providers Care Aircraft Seat Upholsterer Name Role Phone Vinicio Grewal MD Primary Care Provider [phone] Jennie Betancourt LABOR COMMISSIONER Unavailable [phone] Allergies No known active allergies Medications simvastatin [...] (11/03/2021): Added automatically from request for surgery [id number] Diverticulosis 06/28/2021 Malignant neoplasm of upper- outer quadrant of right breast in female, estrogen receptor positive 11/18/2020 Malignant neoplasm of lower- outer quadrant of right breast of female, estrogen receptor positive 11/16/2019 Cancer Staging:Clinical: cT1b - Unsigned Pathologic:Stage IA(pT1b, pN0(sn), cM0, G2, ER+, TN+, HER2-) - Unsigned Mixed hyperlipidemia 11/16/2019 Resolved [...] Immunization Administration Dates Next Due COVID-19 mRNA ([employer]) 0.3 m L (30 mcg) vaccine (12 years and up) 08/19/2024,08/27/2023 Influenza, Quadrivalent, Hig h Dose, Preservative Free, Intrr 06/14/2020 Influenza, Quadrivalent, Spl it, Preservative Free, Intramuscular 08/27/2023,11/16/2019 Influenza, Trivalent, Preservative Free, Intramu scular 08/19/2024 Influenza, Unspecified 07/19/2022,08/16/2021 Moderna SARS-CoV-2 Monovalent Vaccination (12+ Y RS) 12/08/2020,2020 Pneumococcal Conjugate PCV 13 07/31/2017 Pneumococcal Polysaccharide PPV23 08/18/2019 Pneumococcal, Unspecified 08/18/2019 Tdap 03/17/2021 ZOSTER Recombinant 05/25/2021,02/28/2021 Social History Tobacco Use Types Packs/Day Years [...] on file Legal Sex Female 2:57 AM GLASS FRAME FITTER Gender Identity Female 12/04/2019 12:48 PM GLASS FRAME FITTER Sexual Orientation Not on file Occupation Industry Job Start Date Job End Date Retired Not on file Not on file Not on file Last Filed Vital Signs Vital Sign Reading Time Taken Comments Blood Pressure 138/82 12/18/2024 7:55 AM GLASS FRAME FITTER Pulse 91 12/18/2024 7:55 AM GLASS FRAME FITTER Temperature 36.7 C (98 F) 12/18/2024 7:55 AM GLASS FRAME FITTER Respiratory Rate 18 12/18/2024 7:55 AM GLASS FRAME FITTER Oxygen Saturation 98% 12/18/2024 7:55 AM GLASS FRAME FITTER Inhaled Oxygen Concentration - - Weight 72.6 kg (160 lb) 12/31/2024 10:29 AM CDT Height 167.6 cm (5' 6) 12/31/2024 10:29 AM CDT Body Mass Index 25.82 12/31/2024 10:29 AM CDT Plan of Treatment Not on file Medical Devices Implanted Type Area Emergency Department Coordinator Device Identifier Shelf Expiration Date Model / Serial / Lot [employer] Shell Acetabular Trident Ii Tritanium D Od50mm Hip 3 Screw Hole Cluster Sterile 702--50d - [id number] Implanted:Qty: 1 on 05/04/2024 by Michele Mccormick MD at [facility] Other - see comments [employer] [id number] 02/16/2029 702-04-50 D / / [id number] [employer] Insert Trident 0deg 36mm 723-00-36d - [id number] Implanted:Qty: 1 on 05/04/2024 by Michele Mccormick MD at [facility] Other - see comments [employer] [id number] 02/10/2029 723-00-36 D / / [id number] [employer] Stem Femoral Hip Collared [employer] [id number] High Offset Size 3 6520-2840 - [id number] Implanted:Qty: 1 on 05/04/2024 by Michele Mccormick MD at [facility] Other - see comments [employer] [id number] 02/24/2029 1104-4852 / / [id number] [employer] V40 36mm Anatomic Hip -2.5mm Offset Taper Head Femoral [employer] 6570-0-436 - [id number] Implanted:Qty: 1 on 05/04/2024 by Michele Mccormick MD at [facility] Other - see comments [employer] [id number] 01/01/2029 6570-0-43 [id number] Procedures Procedure Name Priority Date/Time Associated Diagnosis Comments SCREENING MAMMOGRAM BILATERAL W SHAWN Schedule Routine, Read Routine (OP Routine) 12/18/2024 1:57 PM GLASS FRAME FITTER History of breast cancer HEPATITIS C ANTIBODY Routine 06/29/2022 8:33 AM CDT DEXA AXIAL SKELETON BONE DENSITY 1 OR MORE SITES Schedule Routine, Read Routine (OP Routine) 11/17/2020 9:17 AM GLASS FRAME FITTER Asymptomatic menopausal state Well woman exam from Last 3 Months or Most Recently Relevant to Health Maintenance Results * Screening Mammogram Bilateral W Shawn (12/18/2024 1:57 PM GLASS FRAME FITTER) Anatomical Region Laterality Modality Breast Bilateral Mammography Narrative 12/19/2024 1:54 PM GLASS FRAME FITTER Mammogram Technique: Bilateral Digital Breast Tomosynthesis, Bilateral C-view 2D Screening mammogram. Views obtained: bilateral craniocaudal and bilateral mediolateral oblique. Computer Aided Detection was performed. Mammogram Findings: The present examination has been compared to prior imaging studies performed at [facility] on 11/23/2021, 11/27/2022 and 12/17/2023. There [...] compared to prior imaging studies performed at [facility] on 11/23/2021, 11/27/2022 and 12/17/2023. There [...] - GENERA L ORDERABLES Final Result SHANNAN DEMPSEY [address] [facility] Department [place] [address] * Dexa Axial Skeleton Bone Density 1 or 2 Site (11/17/2020 9:17 AM GLASS FRAME FITTER) Anatomical Region Laterality Modality Body N/A Radiographic Chey ging Narrative 11/17/2020 1:10 PM GLASS FRAME FITTER Patient Name: Mya Shi Date of : 1955 Date of scan: 11/17/2020 Bone mineral density was performed on a [employer] Discovery Densitometer. Machine Cross-calibration and Precision studies [...] of Internal Medicine 114(11): 919-923 (1990) 2) Zhang, Lancet 341 : 72-75 (1992) 3) Black, Journal Bone and Mineral Research 7(6): 633-8 (1991) 4) Mean, Journal Bone and Mineral Research 8(10):1227-33 (1992) The history and data sections of the bone mineral density scan were prepared by Gisela Deluca who is accredited by the International Society of Clinical Densitometry. The overall patient assessment and scan interpretation were performed by William Carrera M.D. who is certified by the International Society of Clinical Densitometry. [id number] us Shawna Hurley MD IMG DXA PROCEDURES Final Resu lt from Last 3 Months or Most Recently Relevant to Health Maintenance Insurance [place] [id number] [facility] MEDICARE ADVANTAGE [place] [id number] [employer]HC MEDICARE ADVANTAGE [address] [facility] MEDICARE ADVANTAGE Advance Directives For more information, please contact: [phone] * Full Code (Latest Code Status on File) Date Activated Date Inactivated Comments 05/04/2024 12:15 PM 05/06/2024 4:31 PM Care Teams Aircraft Seat Upholsterer Relationship Specialty Start Date End Date Vinicio Grewal MD [address] [address] PCP - General Family Practice 01/04/23 Jennie Betancourt NP [address] [place] [address] Nurse Practitioner Medical Oncology 12/17/23
--- OUTSIDE RECORDS SUMMARY | 2025-05-04 16:05 | XMS_ITS | Clinical Summary ---
Author Organization [facility] Address [address], [address] [id number] Phone Care Team Providers Care Physiology Teacher Name Role Phone Unavailable Primary Care Provider Unavailabl e Social History Tobacco Use Types Packs/Day Years Used Date Smoking Tobacco: Never Assessed Comments Unknown Sex and Gender Information Value Date Recorded Sex Assigned at Not on file Legal Sex Female 11:39 PM CDT Gender Identity Not on file Sexual Orientation Not on file Plan of Treatment Health Maintenance Due Date Last Done Comments Hepatitis C Virus (HCV) Screening 1955 TdaP Immunization 1954 Cologuard 1999 Colonoscopy 1999 Colorectal Cancer Screening 1999 Immunochemical Fecal Occult Blood 1999 Pneumococcal Immunization (5 0+ years) (1 of 1 - PCV) 2004 Zoster Immunization (1 of 2) 2004 SARS-COV-2 Immunization (1 - 2023- season) 2024 Influenza Immunization (#1) 2025 Respiratory Syncytial Virus (RSV) Immunization (Adult) (1 - 1-dose 75+ series) 2029 Hepatitis B Immunization Aged Out No longer eligible based on patient's age to complete this topic Human Papillomavirus (HPV) Immunization Aged Out No longer eligible b ased on patient's age to complete this topic Meningococcal Immunization (ACWY) Aged Out No longer eligible based on patient's age to complete this topic Rotavirus Immunization Aged Out No lo nger eligible based on patient's age to complete this topic
== END ==
LOC: ANHLAB 16:03
PROVIDERS: PCP Family Medicine; Visit Provider Plastic Surgery
DX: L90.5 Scar conditions and fibrosis of skin (principal); C44.91 Basal cell carcinoma of skin, unspecified
CPT/HCPCS: 88305